=== PATIENT | male | born 1975 | race Hispanic/Latino ===

== ENCOUNTER 2017-05-23 04:16 | Emergency (ER) | payer BC, OTHER | END 2017-05-23 04:53 | disposition home or self-care (01) | LOC: ERS 04:16 | DX: R50.9 Fever, unspecified (principal) | CPT/HCPCS: 99283 ==

== ENCOUNTER 2018-07-29 09:20 | Emergency (ER) | payer SELFPAY ==
[2018-07-29 10:14] LABS: #Basophils 0.1 thou/uL (0.0-0.2); #Eosinphils 0.2 thou/uL (0.0-0.7); #Lymphocytes 3.9 thou/uL (1.20-3.40); #Monocytes 0.7 thou/uL (0.11-0.59); #Neutrophils 4.4 thou/uL (1.40-6.50); %Basophils 0.6 % (0.0-1.0); %Lymphocytes 42.4 % (21.0-51.0); %Monocytes 7.1 % (0.0-10.0); Hemoglobin 17.2 g/dL (14.0-18.0); Mean Corpuscular HGB CONC 33.9 g/dL (32.0-36.0); Mean Corpuscular Hemoglobin 29.7 pg (27.0-31.0); Mean Corpuscular Volume 87.5 fL (78.0-98.0); Mean Platelet Volume 11.2 fL (7.4-10.4); Platelet Count 173 thou/uL (130-400); RBC Distribution Width 12.6 % (11.5-14.5); White Blood Cell (WBC) Count 9.1 thou/uL (4.8-10.8)
[2018-07-29 10:37] LABS: ALT (SGPT) 49 U/L (8-55); AST (SGOT) 19 U/L (5-34); Albumin 4.7 g/dL (3.5-5.0); Alkaline Phosphatase 79 U/L (40-150); Anion Gap 18 mmol/L (10-20); BUN (Urea Nitrogen) 12 mg/dL (8.9-20.6); Bilirubin, Total 0.5 mg/dL (0.2-1.2); Calc. Creatinine Clearance 0 mL/min (70-130); Calcium 9.7 mg/dL (7.8-10.44); Carbon Dioxide 22 mmol/L (22-29); Chloride 105 mmol/L (98-107); Estimated GFR-MDRD 78; Globulin 3.8 g/dL (2.4-3.5); Glucose 117 mg/dL (70-105); Lipase 26 U/L (8-78); Potassium 3.3 mmol/L (3.5-5.1); Protein, Total 8.5 g/dL (6.0-8.3); Sodium 142 mmol/L (136-145)
[2018-07-29] MEDS ORDERED: Lidocaine Viscous Sol 2% 15 ml UD Cup ONE (11:26)
[2018-07-29] MEDS ORDERED: Mag-Al 1200 mg/1200 mg/30 ML UDCUP ONE (11:26)
--- NOTE | 2018-07-29 11:49 | ULT ---
RIGHT UPPER QUADRANT ULTRASOUND: COMPARISON: None. HISTORY: Epigastric pain that began this morning. TECHNIQUE: Multiplanar, lei scale, and color Doppler images were obtained in a right upper quadrant abdominal u ltrasound. FINDINGS: The liver demonstrates increased echogenicity without focal lesions or intrahepatic ductal dilatation . Shadowing stones are seen in the gallbladder. There is no gallbladder wall thickening or perichol ecystic fluid. The common bile duct is normal measuring 5 mm. The visualized portions of the pancreas are unremarkable. The right kidney is normal in echogenicity without focal lesions and measures 11.9 cm in length. IMPRESSION: 1. Cholelithiasis. 2. Fatty liver. POS: [facility]
[2018-07-29] MEDS ORDERED: ISOVUE-370 76%-LOCM 1 ML ONE (12:46)
--- NOTE | 2018-07-29 14:35 | CT ---
CT OF THE ABDOMEN AND PELVIS WITH CONTRAST: COMPARISON: None. HISTORY: Epigastric pain for 2 days with nausea and vomiting. TECHNIQUE: Multiple contiguous axial images were obtained in a CT of the abdomen and pelvis with contrast. Jaye nal reformats were performed. FINDINGS: There is diffuse fatty infiltration of the liver with focal fatty sparing adjacent to the gallbladder . Gallstones are seen in the gallbladder. No common duct dilatation is seen. The kidneys, adrenal glands, spleen, and pancreas are unremarkable. No free air, free fluid, or stranding changes are seen in the abdomen or pelvis. The large and small bowel are unremarkable. The appendix is not definitely seen. No abdominal or pelvic lymphadenopath y are present. The osseous structures, visualized inferior thorax, and abdominal wall soft tissues are unremarkable. IMPRESSION: 1. Cholelithiasis. 2. Fatty liver. POS: [facility]
== END 2018-07-29 14:19 | disposition home or self-care (01) ==
LOC: ERS 09:20
DX: K80.20 Calculus of gallbladder without cholecystitis without obstruction (principal)
CPT/HCPCS: 36415; 74177; 76705; 80053; 83690; 85025; 93005; Q9966

== ENCOUNTER 2018-07-30 11:40 | Day surgery (SDC) | payer SELFPAY ==
--- NOTE | 2018-07-30 11:45 | HP ---
HISTORY OF PRESENT ILLNESS: A 42-year-old male, 99 kg, works as security, has for the last year been experiencing epigastric pain, back radiation, nausea that became exquisitely severe and went to the emergency room last night. Had an ultrasound of the gallbladder that revealed gallstones with normal bile duct caliber. CT scan of the abdomen and pelvis revealed fatty liver, cholelithiasis. HABITS: Tobacco, none. Alcohol, none. MEDICATIONS: None. PAST SURGICAL AND MEDICAL HISTORY: Noncontributory. REVIEW OF SYSTEMS: Noncontributory. PHYSICAL EXAMINATION: VITAL SIGNS: Weight 231 pounds, 5 feet 11 inches, 32 BMI, blood pressure 153/94, heart rate 84, temperature 98.8 degrees. HEAD, EARS, EYES, NOSE, AND THROAT: Unremarkable. LUNGS: Clear to auscultation. CARDIAC: Regular rate and rhythm without murmur or gallop. ABDOMEN: Soft. Mild tenderness in the epigastric and right upper quadrant. EXTREMITIES: Unremarkable. ASSESSMENT AND PLAN: Acute cholecystitis, cholelithiasis. We would recommend laparoscopic video cholecystectomy. Risks of infection, bleeding, reoperation, visceral and biliary injury, open procedure discussed. Questions answered. Job ID: [id number]
[2018-07-30] MEDS ORDERED: Sodium Chloride 0.9% 10 ML ONE (12:50)
[2018-07-30] MEDS ORDERED: Levofloxacin 500 mg/D5W 100 ml Premix Bag ONE (12:52)
[2018-07-30] MEDS ORDERED: Ketorolac Tromethamine 30 MG/ML VIAL ONE (12:52)
[2018-07-30] MEDS ORDERED: Bupivacaine HCl 0.5%/Epinephrine 1:200,000/PF 30 ml Vial ONE (13:36)
[2018-07-30] MEDS ORDERED: Fentanyl 100 MCG/2 ML VIAL ONE (13:38)
[2018-07-30] MEDS ORDERED: Midazolam HCl 2 mg/2 ml Vial ONE (13:51)
[2018-07-30] MEDS ORDERED: HYDROcodone/Acetaminophen 5/325 mg Tablet ONE (16:13)
[2018-07-30] MEDS ORDERED: Ondansetron PF 4 MG/2 ML Vial ONE (16:58)
[2018-07-30] MEDS ORDERED: Lidocaine 1% PF 5 ML VIAL ONE (16:58)
[2018-07-30] MEDS ORDERED: Rocuronium Bromide 10 MG/ML (10ML VIAL) ONE (16:58)
[2018-07-30] MEDS ORDERED: PROPOFOL 200 MG/20 ML VIAL ONE (16:58)
[2018-07-30] MEDS ORDERED: Glycopyrrolate 0.2 MG/ML 5 ML SYRINGE ONE (16:58)
[2018-07-30] MEDS ORDERED: Succinylcholine Chloride 20 MG/ML 10 ml SYRINGE FS ONE (16:58)
--- NOTE | 2018-07-30 21:55 | OP ---
DATE OF PROCEDURE: 07/30/2018 PREOPERATIVE DIAGNOSES: Chronic cholecystitis and cholelithiasis. POSTOPERATIVE DIAGNOSES: Chronic cholecystitis and cholelithiasis. PROCEDURE PERFORMED: Laparoscopic video cholecystectomy. ANESTHESIA: General, local 0.5% Marcaine with epinephrine 30 mL total. DESCRIPTION OF PROCEDURE: The patient was taken to the operating room, where under general anesthesia, abdomen was prepared with ChloraPrep and draped in routine fashion. Local anesthetic was infiltrated in the skin and subcutaneous tissue at each port site. An infraumbilical incision was made. Pneumoperitoneum to 15 mmHg was obtained with Veress needle, replaced with a 5 port, laparoscope inserted. Right subxiphoid incision was made and 11 port placed. Right subcostal incision was made. Midclavicular and anterior axillary lines and 5 ports placed. The gallbladder was acutely inflamed with thickened wall and partially intrahepatic at the fundus. Fundus was grasped with some difficulty, reflected cephalad. Infundibulum grasped and reflected laterally. Cystic artery and duct were dissected free from its edematous attachments. Cystic artery and duct visualized. Critical view obtained. Cystic artery and duct double clipped proximally, divided. Gallbladder was dissected free from dense inflammatory attachments in the liver. We used cautery for hemostasis. Gallbladder and contents were placed in Endobag and it was removed in fragments. Incision had to be enlarged. Hemostasis was obtained with cautery. Kerrie was used. The subxiphoid fascia was approximated with [id number] suture 0 Vicryl with UR needle. Good hemostasis noted. Irrigant and pneumoperitoneum evacuated. All instruments were removed, and all skin incisions were incisions were approximated with interrupted subdermal 4-0 Monocryl and [place] glue applied. Job ID: [id number]
== END 2018-07-30 17:10 | disposition home or self-care (01) ==
LOC: SDC 11:40
PROVIDERS: ATTEND Specialist
PROC: 0FT44ZZ Resection of Gallbladder, Percutaneous Endoscopic Approach (ICD-10-PCS; principal; 2018-07-30)
DX: K80.12 Calculus of gallbladder with acute and chronic cholecystitis without obstruction (principal)
CPT/HCPCS: 88304; J0131; J0670; J1885; J1956; J2001; J2250; J2405; J2704; J3010